=== PATIENT | male | born 1960 | race Caucasian/White ===

== ENCOUNTER 2017-08-29 09:19 | Emergency (ER) | payer OTHER ==
--- NOTE | 2017-08-29 09:54 | UC ---
Lower Extremity/Ankle HPI - HPI Summary HPI Summary: 57 year old male presents with complains of severe right leg pain/erythema. - History of Current Complaint Stated Complaint: RIGHT LEG COMPLAINT Time Seen by Provider: 08/29/17 09:54 Hx Obtained From: Patient Onset/Duration: Sudden Onset Severity Initially: Moderate Severity Currently: Moderate Pain Scale Used: 0-10 Numeric - 8 Aggravating Factor(s): Standing Alleviating Factor(s): Rest, Elevation - Allergies/Home Medications Allergies/Adverse Reactions: Allergies Allergy/AdvReac Type Severity Reaction Status Date / Time No Known Allergies Allergy Verified 08/29/17 10:04 Home Medications: Home Medications Insulin NPH Isophane & Reg (Hu [Humulin 70/30 (70-30) 100 Unit/ml] 60 inj SC BID 08/29/17 [History Confirmed 08/29/17] PMH/Surg Hx/FS Hx/Imm Hx Previously Healthy: Yes - Surgical History Surgical History: None - Family History Known Family History: Positive: Cardiac Disease, Hypertension, Diabetes - Social History Alcohol Use: None Substance Use Type: None Smoking Status (MU): Former Smoker When Did the Patient Quit Smoking/Using Tobacco: 15+ years ago - Immunization History Most Recent Tetanus Shot: unknown Review of Systems Constitutional: Negative Skin: Other - right leg pain/erythema Eyes: Negative ENT: Negative Respiratory: Negative Cardiovascular: Negative Gastrointestinal: Negative Genitourinary: Negative Motor: Negative Neurovascular: Negative Musculoskeletal: Negative Neurological: Negative Psychological: Negative All Other Systems Reviewed And Are Negative: Yes Physical Exam Triage Information Reviewed: Yes Vital Signs Reviewed: Yes Eye Exam: Normal ENT Exam: Normal Dental Exam: Normal Neck exam: Normal Neck: Positive: 1 Respiratory Exam: Normal Cardiovascular Exam: Normal Abdominal Exam: Normal Musculoskeletal Exam: Normal Neurological Exam: Normal Psychological Exam: Normal Skin: Positive: Other - right leg erythema/pain/swelling Lower Extremity Course/Dx - Differential Dx/Diagnosis Provider Diagnoses: right leg cellulitis Discharge - Discharge Plan Condition: Stable Disposition: OTHER Discharge Disposition Comment: patient suggested to go to the er. Patient Education Materials: Cellulitis (ED) Referrals: Reza Desai MD [Primary Care Provider] - Additional Instructions: patient suggested to go to the er for severe lower extremity cellulitis
[2017-08-29 10:17] VITALS: BP 105/59
== END 2017-08-29 10:27 ==
LOC: UCCORT 09:19
DX: L03.115 Cellulitis of right lower limb (principal); Z87.891 Personal history of nicotine dependence
CPT/HCPCS: 99212; G0463